=== PATIENT | female | born 1995 | race African-American/Black ===

== ENCOUNTER 2023-08-16 13:37 | Emergency (ER) | payer MEDICAID, OTHER ==
[~2023-08-16] VITALS: Ht 165.1 cm; Wt 59.0 kg
[2023-08-16 13:49] VITALS: BP 120/78; PULSE 126; RESP 16; TEMP 98.2; O2SAT 98
[2023-08-16] MEDS ORDERED: KEPP500 MT (13:58)
== END 2023-08-16 17:02 | disposition home or self-care (01) ==
LOC: ER 13:37
DX: R56.9 Unspecified convulsions (principal); Z91.148 Patient's other noncompliance with medication regimen for other reason; Z98.890 Other specified postprocedural states
CPT/HCPCS: 99283